=== PATIENT | female | born 1970 | race Caucasian/White ===

== ENCOUNTER 2019-10-16 07:46 | Emergency (ER) | payer BC, SELFPAY ==
[2019-10-16 07:52] VITALS: BP 153/69; PULSE 80; RESP 18; TEMP 36.6; O2SAT 100
[2019-10-16 08:02] VITALS: BP 141/76; PULSE 82; RESP 18; O2SAT 96
--- NOTE | 2019-10-16 08:13 | ED.RECABL ---
HPI - Recheck/Abnormal Lab/Rx General Chief Complaint: Recheck/Abnormal Lab/Rx Stated Complaint: Elevated blood pressure Time Seen by Provider: 10/16/19 08:02 Source: patient Mode of arrival: ambulatory Limitations: no limitations History of Present Illness HPI narrative: A 49 y/o female pt presents to the ED, with c/o high BP x 4 days ago. Pt states she took her BP at [facility] and her systolic pressure was in the 160s-170s. She notes purchasing her own blood pressure monitor and states that her systolic pressure was as high as 183, but she is unable to recall the diastolic pressure. She reports tinnitus that mimics a cricket sound following a recent procedure she had done on her nose and after looking online found that it can be associated with high blood pressure. Her BP is 141/76 in the ED. Pt denies having a KHAN. complaint: other (high BP) Initial visit (ago): day(s) (4) Description of abnormal result: High BP Context: other (recent nose procedure) Associated symptoms: other (Tinnitus) Related Data Home Medications Medication Instructions Recorded Confirmed sertraline 25 mg tablet 25 mg PO DAILY 06/23/19 07/19/19 zolpidem 5 mg tablet 5 mg PO ONCE 06/23/19 07/19/19 fluticasone propionate 50 1 spray NASAL BID 07/18/19 07/19/19 mcg/actuation nasal spray,suspension montelukast 10 mg tablet 10 mg PO DAILY 07/18/19 07/19/19 Allergies Allergy/AdvReac Type Severity Reaction Status Date / Time iodixanol Allergy Unknown sneezing, Verified 08/27/18 14:10 itchey watery eyes Penicillins Allergy Unknown Unknown Verified 08/13/17 13:23 Review of Systems Review of Systems: All systems reviewed & are unremarkable except as noted in HPI and below Constitutional: Constitutional: Denies headache(s) and Reports other (High BP reading) ENT: Reports tinnitus ( cricket sound) [facility] Past Medical History Medical History Allergies Anxiety Delivery with history of Environmental allergies Granulosa cell tumor Insomnia Left ovarian epithelial cancer Surgical History Surgical History History of left salpingo-oophorectomy 2014 Social History Social History Smoking status: Never smoker Second hand tobacco smoke exposure: No Alcohol intake: current Substance use: never Substance use type: does not use Exam Const: General: healthy appearing, no acute distress and well developed Nutritional Appearance: well nourished Orientation/consciousness: patient oriented x3 (alert) and Other orientation findings (Alert) Limitations: no limitations HENMT: Head: normocephalic and atraumatic Ears: external ears normal General nose exam: No nasal discharge present and no epistaxis Face and sinus: face symmetric Mouth: Yes lip normal, Yes tongue normal and Yes moist mucous membranes Throat: other (No exudate, no erythema) Eyes: Conjunctivae: conjunctivae normal Sclera: sclerae normal EOM: EOMs intact bilaterally Neck: Neck: full ROM, no lymphadenopathy and supple Thyroid: thyroid normal Chest: Chest palpation & inspection: no tenderness Resp: Effort & Inspection: normal respiratory effort Auscultation: clear to auscultation bilaterally, no rales, no rhonchi, no wheezes and other (breath sounds equal) Cardio: Rate: regular rate Rhythm: regular rhythm Heart sounds: no gallops and no murmurs GI: Inspection: non-distended GI Palp: No abdominal tenderness and Yes Soft to palpation Auscultation: other (bowel sounds present) : General: Yes no CVA tenderness Back/Spine/Pelvis: Back: no CVA tenderness Thoracic/Lumbar Spine: thoracic and lumbar spine normal to inspection Skin: General skin exam: normal color and no rashes or lesions noted Neuro: General: patient oriented x3 (alert), moves all extremities and no focal nicole
[2019-10-16 08:34] VITALS: BP 138/88; PULSE 77; RESP 16; O2SAT 99
== END 2019-10-16 08:35 | disposition home or self-care (01) ==
LOC: ANHED 08:34
PROVIDERS: Emergency Provider Emergency Medicine; PCP Family Medicine
DX: I10 Essential (primary) hypertension (principal); F41.9 Anxiety disorder, unspecified
CPT/HCPCS: 99281

== ENCOUNTER 2020-12-06 17:17 | Outpatient (CLI) | payer BC, SELFPAY | END 2020-12-06 17:18 | disposition home or self-care (01) | LOC: ANHLAB 17:19 | PROVIDERS: PCP Family Medicine; Visit Provider Family Medicine | DX: R30.0 Dysuria (principal) | CPT/HCPCS: 87086 ==

== ENCOUNTER 2021-06-14 01:59 | Day surgery (SDC) | payer BC, SELFPAY ==
[2021-06-05 11:04] VITALS: BMI 28.5
[2021-06-14 08:37] VITALS: BP 120/74; PULSE 81; RESP 20; TEMP 36.8; O2SAT 98; BMI 27.8
[2021-06-14] MEDS: LACTATED RINGERS 1,000 ML 150 ML IV CONT (08:47)
--- NOTE | 2021-06-14 09:20 | WPDGICN ---
Assessment and Plan Assessment and plan (1) Family history of colonic polyps: Code(s): Z83.71 - Family history of colonic polyps Status: Acute Assessment and Plan: Patient's mother had colon polyps. For this reason patient should have screening at this time and consider follow-up colonoscopy in 5 years in the future. (2) Change in bowel movement: Code(s): R19.8 - Other specified symptoms and signs involving the digestive system and abdomen Status: Acute Assessment and Plan: Patient is diarrhea alternating with constipation. The somewhat suspicious for irritable bowel syndrome. Suggest patient try fiber supplement such as FiberCon 2 tabs p.o. b.i.d.. GI Consult Note Consult date/time: 06/14/21 09:20 HPI: Ramandeep Sánchez is a 51 year old female Presents for screening colonoscopy. Patient states that her current weight appetite bowel movements are normal. She denies abdominal pain. Her family history is significant that her mother has had colon polyps. Patient recently has noted some alteration of diarrhea alternating with constipation. She denies any bleeding or weight loss. Review of Systems Review of Systems: All systems reviewed & are unremarkable except as noted in HPI and below PMFSH Past Medical History Medical History Allergies Anxiety Delivery with history of Environmental allergies Granulosa cell tumor Hearing loss Insomnia Lateral epicondylitis of right elbow Left ovarian epithelial cancer Right rotator cuff tendinitis Surgical History Surgical History H/O section (~2009) H/O: hysterectomy (~03/2020) History of left salpingo-oophorectomy 2013 Family History Family History Unknown Hypertension Arthritis Other Family history of Parkinson's disease Family history of coronary artery disease Social History Social History Smoking status: Never smoker Second hand tobacco smoke exposure: No Alcohol intake: current Drinks per week: 6 Alcohol use details: 5 glasses of wine consumed weekly Substance use: never Substance use type: does not use Living arrangements: with family Gender identity (if verbalized by the patient): Female Spiritual care concerns: No Meds Home Medications and Allergies Home Medications Medication Instructions Recorded Confirmed Type triamcinolone acetonide 55 mcg 2 spray INTRANASAL DAILY 11/22/20 06/05/21 History nasal spray aerosol sertraline 50 mg tablet 50 mg PO DAILY #90 tablet 03/11/21 06/05/21 Rx ibuprofen [Advil] 600 mg PO BID PRN 06/05/21 06/05/21 History levocetirizine [Xyzal] 5 mg PO DAILY PRN 06/05/21 06/05/21 History trazodone 50 mg PO QHS PRN 06/05/21 06/05/21 History Allergies Allergy/AdvReac Type Severity Reaction Status Date / Time Penicillins Allergy Unknown Unknown Verified 06/14/21 08:36 Iodinated Contrast Media Allergy Itching Verified 06/14/21 08:36 oxycodone Allergy Swelling Verified 06/14/21 08:36 of Lip/Tongue/Throat Vital Signs Vital Signs - 24 hr 06/14/21 08:37 Temperature 98.2 F Pulse Rate 81 Respiratory Rate 20 Blood Pressure 120/74 Pulse Oximetry 98 Exam Narrative: Physical exam reveals patient to be alert. Vital signs stable. HEENT exam is unremarkable. Patient is anicteric. Lungs are clear to auscultation and percussion. Heart is without murmur or extra sounds. Abdominal exam bowel sounds are present soft nontender with no organomegaly. Digital external rectal exam is normal.
--- NOTE | 2021-06-14 09:33 | WPDANESEPPF ---
Anes - Initial Pre Proc Eval Procedure: Operation Date: 06/14/21 09:45 Proposed Procedures p Screening Colonoscopy - Darryn Duncan MD Date/Time: 06/14/21 09:33 Surgeon: Darryn Duncan MD Pre Op Diagnosis: family hx of colon polyps Patient Data Age: 51 Gender: F Height: 1.68 m Weight: 78.2 kg Last Vital Signs Temp 36.8 C 06/14/21 08:37 Pulse 81 06/14/21 08:37 Resp 20 06/14/21 08:37 BP 120/74 06/14/21 08:37 Pulse Ox 98 06/14/21 08:37 Allergies Allergy/AdvReac Type Severity Reaction Status Date / Time Penicillins Allergy Unknown Unknown Verified 06/14/21 08:36 Iodinated Contrast Media Allergy Itching Verified 06/14/21 08:36 oxycodone Allergy Swelling Verified 06/14/21 08:36 of Lip/Tongue/Throat Home Medications Medication Instructions Recorded Confirmed Type triamcinolone acetonide 55 mcg 2 spray INTRANASAL DAILY 11/22/20 06/05/21 History nasal spray aerosol sertraline 50 mg tablet 50 mg PO DAILY #90 tablet 03/11/21 06/05/21 Rx ibuprofen [Advil] 600 mg PO BID PRN 06/05/21 06/05/21 History levocetirizine [Xyzal] 5 mg PO DAILY PRN 06/05/21 06/05/21 History trazodone 50 mg PO QHS PRN 06/05/21 06/05/21 History Patient hx anesthesia problems: none Family hx anesthesia problems: none Results Review: All pre-operative results and documents have been reviewed as part of the pre-operative evaluation. [facility] Past Medical History Medical History Allergies Anxiety Delivery with history of Environmental allergies Granulosa cell tumor Hearing loss Insomnia Lateral epicondylitis of right elbow Left ovarian epithelial cancer Right rotator cuff tendinitis Surgical History Surgical History H/O section (~2009) H/O: hysterectomy (~03/2020) History of left salpingo-oophorectomy 2014 Family History Family History Unknown Hypertension Arthritis Other Family history of Parkinson's disease Family history of coronary artery disease Social History Social History Smoking status: Never smoker Second hand tobacco smoke exposure: No Alcohol intake: current Drinks per week: 6 Alcohol use details: 5 glasses of wine consumed weekly Substance use: never Substance use type: does not use Living arrangements: with family Gender identity (if verbalized by the patient): Female Spiritual care concerns: No Anes - Eval Final PreProcedure Day of Procedure 06/14/21 09:33 Patient weight: overweight Heart: regular rate and rhythm Lungs: clear to auscultation Airway: Mallampati scale class III Neurological: alert and oriented Last oral intake: >/= 8 hours ASA classification: II Emergent: no Anesthetic plan: proceed Anesthesia type and monitoring: general GIVS and standard monitoring Results Review: All pre-operative results and documents have been reviewed as part of the pre-operative evaluation. Informed Consent: The patient's anesthetic plan and its attendant risks and benefits were discussed with the patient/family/POA. Questions were solicited and answers provided to the satisfaction of the patient/family/POA.
[2021-06-14 09:57] VITALS: BP 122/78; PULSE 80; RESP 18; O2SAT 100
[2021-06-14 10:07] VITALS: BP 126/74; PULSE 76; RESP 20; O2SAT 100
[2021-06-14 10:17] VITALS: BP 131/88; PULSE 66; RESP 18; O2SAT 100
== END 2021-06-14 10:25 | disposition home or self-care (01) ==
PROVIDERS: PCP Family Medicine; Visit Provider Internal Medicine Gastroenterology
PROC: 0DJD8ZZ Inspection of Lower Intestinal Tract, Via Natural or Artificial Opening Endoscopic (ICD-10-PCS; CPT 45378; principal; 2021-06-14 09:45)
DX: Z12.11 Encounter for screening for malignant neoplasm of colon (principal); Z83.71 Family history of colonic polyps; D12.2 Benign neoplasm of ascending colon; K64.8 Other hemorrhoids; F41.9 Anxiety disorder, unspecified; G47.00 Insomnia, unspecified
CPT/HCPCS: 45385; 88305; J2704; J7120

== ENCOUNTER 2023-05-07 12:40 | Outpatient (CLI) | payer BC, SELFPAY ==
[2023-05-07 19:21] LABS: Influenza A QL RT-PCR Negative (Negative); Influenza B QL RT-PCR Negative (Negative); SARS-CoV-2 RNA PCR Positive (Negative)
== END 2023-05-07 12:41 | disposition home or self-care (01) ==
LOC: ANHGOSHLAB 12:41
PROVIDERS: PCP Family Medicine; Visit Provider Family Medicine
DX: U07.1 COVID-19 (principal)
CPT/HCPCS: 87636

== ENCOUNTER → 2023-06-16 11:46 | Outpatient (CLI) | payer BC, SELFPAY ==
--- NOTE | ~2023-06-16 | XR_ITS ---
Clinical Indication: Chest pain PA and lateral views of the chest: Comparison: None Findings: The lungs are clear, without evidence of focal consolidation or pleural effusion. Cardiome diastinal silhouette is within normal limits. Bones and soft tissues are unremarkable. Impression: Normal chest. Reviewed, dictated and finalized at location . MANAGER Impression: Normal chest.
== END ==
PROVIDERS: PCP Family Medicine; Visit Provider Nurse Practitioner Family
DX: R07.9 Chest pain, unspecified (principal); R06.02 Shortness of breath
CPT/HCPCS: 71046